=== PATIENT | female | born 1990 | race African-American/Black ===

== ENCOUNTER → 2016-07-25 | Outpatient (CLI) | payer OTHER, MEDICAID ==
[~2016-07-25] MED LIST: ACDPT PO; PNV91TAB3 PO
--- NOTE | 2016-07-25 15:21 | Diagnostic Imaging Report ---
INDICATION: Anatomical survey, twin gestation. COMPARISON: 05/01/2016. DISCUSSION: Transabdominal sonographic evaluation of the gravid uterus was performed. Twin live intrauterine is noted. No abnormal adnexal mass or fluid. Twin A: presentation is cephalic. Placenta is located posteriorly with no placenta previa. Three-vessel cord is visualized. Normal amniotic fluid index measuring 10.2 cm. heart rate measures 158 beats per minute. Estimated weight is 255 g. Good visualization of the three-vessel cord and insertion, stomach, kidneys, bladder, four-chamber heart, spine, extremities, and brain. Biparietal diameter measures 4.03 cm. Head circumference measures 14.8 cm. Abdominal circumference measures 13.5 cm. Femur length measures 2.8 cm. Gestational age is 18 weeks 4 days. EDC by today's ultrasound is 12/22/2016. Twin B: presentation is breech. Placenta is located anteriorly with no placenta previa. Normal amniotic fluid index measuring 8.1 cm. heart rate measures 132 beats per minute. Estimated weight is 211 g. Three-vessel cord and cord insertion appear within normal limits. spine, brain, and extremities appear within normal limits. Good visualization of the four-chamber heart. The kidneys and urinary bladder appear within normal limits. Biparietal diameter measures 4.0 cm. Head circumference measures 14.74 cm. Abdominal circumference measures 11.73 cm. Femur length measures 2.63 cm. Gestational age is 18 weeks 1 day by today's sonographic measurements. EDC by today's ultrasound is 12/25/2016. IMPRESSION: 1. Twin live dichorionic diamniotic , as described. Normal anatomical surveys. Dictated by: Dictated on workstation # [id number]
== END ==
LOC: RAD 13:04
PROVIDERS: ATTEND Family Medicine
DX: Z36 Encounter for antenatal screening of mother (principal); O30.042 Twin pregnancy, dichorionic/diamniotic, second trimester; Z3A.18 18 weeks gestation of pregnancy
CPT/HCPCS: 76805; 76810

== ENCOUNTER 2016-08-05 17:01 | Emergency (ER) | payer OTHER, MEDICAID ==
[~2016-08-05] VITALS: Ht 157.5 cm; Wt 83.1 kg
[~2016-08-05 17:01] MED LIST changes: -ACDPT PO
[2016-08-05] MEDS ORDERED: MEPERIDINE 50 MG/ML (DEMEROL) SYRINGE IV ONE (17:35)
[2016-08-05] MEDS ORDERED: SODIUM CHLORIDE FLUSH 3 ML SYR IV PRN (17:35)
[2016-08-05] MEDS ORDERED: SODIUM CHLORIDE FLUSH 10 ML SYR IV PRN (17:35)
[2016-08-05] MEDS ORDERED: ONDANSETRON 2 MG/ML (Z0FRAN) 2 ML VIAL IV ONE ×2 (17:35→18:05)
[2016-08-05] MEDS ORDERED: SODIUM CHLORIDE 250 ML IV PRN (17:35)
--- NOTE | 2016-08-05 17:54 | NUR ---
Sera yu to measure baby's heart tones
--- NOTE | 2016-08-05 17:59 | NUR ---
PT BECOMES NAUSEATED NOW AFTER ZOFRAN/DEM. DR OCAMPO NOTIFIED. CL
[2016-08-05 18:01] LABS: ALBUMIN 3.4 g/dL (3.4-5.0); ALKALINE PHOSPHATASE 74 U/L (38-126); ANION GAP 10.2 MEQ/L (3-15); BUN/CREATININE RATIO 16 (10-20); CALCULATED IONIZED CALCIUM 4.2 mg/dL (3.8-4.6); CREATINE KINASE 63 U/L (30-135); MAGNESIUM* 1.8 mg/dL (1.6-2.3); TOTAL PROTEIN 6.6 g/dL (6.4-8.5)
--- NOTE | 2016-08-05 18:06 | Diagnostic Imaging Report ---
INDICATION: with twins. Chest pain x1 hour. FINDINGS: Portable chest shows the lungs to be well-aerated and clear. The heart is not enlarged. No pulmonary edema. No pneumothorax or pleural effusions. IMPRESSION: Normal portable chest. Dictated by: Dictated on workstation # [id number]
[2016-08-05 18:07] LABS: BASOPHILS % (AUTO) 0 % (0-2); EOSINOPHILS % (AUTO) 1 % (0-4); LYMPHOCYTES # (AUTO) 1.7 X10^3; MEAN CORPUSCULAR HGB CONC 35.4 g/dL (31.0-37.0); MEAN CORPUSCULAR VOLUME 91 FL (80-100); MEAN PLATELET VOLUME 10.3 FL (6.0-9.5); MONOCYTES # (AUTO) 0.6 X10^3; MONOCYTES % (AUTO) 9 % (3-11); NEUTROPHILS # (AUTO) 4.2 X10^3; NEUTROPHILS % (AUTO) 65 % (51-67); PLATELET COUNT 267 10^3uL (150-450); WHITE BLOOD COUNT 6.56 10^3uL (4.0-11.0)
--- NOTE | 2016-08-05 18:10 | NUR ---
BABY MATERNAL LT FHT= 154 BABY MATERNAL RT FHT = 152 MOVEMENT HEARD WITH EA. BABY. CL
[2016-08-05 18:17] LABS: MEAN CORPUSCULAR HEMOGLOBIN 32.2 PG (26.0-34.0)
--- NOTE | 2016-08-05 19:07 | NUR ---
REPORT GIVEN TO Kay OCHOA AND SHE ACCEPTED CARE OF PT
--- NOTE | 2016-08-05 19:43 | NUR ---
[facility] CALLED [facility] [id number] CRUZ
[2016-08-05 20:42] VITALS: BP 114/37
[2016-08-18] MEDS ORDERED: ACDPT PO (13:45)
== END 2016-08-05 20:42 | disposition home or self-care (01) ==
LOC: ED 17:05
DX: O30.009 Twin pregnancy, unspecified number of placenta and unspecified number of amniotic sacs, unspecified trimester (principal); O26.899 Other specified pregnancy related conditions, unspecified trimester; R09.1 Pleurisy; J40 Bronchitis, not specified as acute or chronic; Z3A.00 Weeks of gestation of pregnancy not specified
CPT/HCPCS: 36415; 71010; 80053; 82550; 82553; 83735; 83880; 84484; 85025; 85379; 85610; 85730; 93005; 96361; 96374; 96375; 99285; J2175; J2405; J7030; 93010

== ENCOUNTER 2016-08-18 13:26 | Emergency (ER) | payer OTHER, MEDICAID ==
[~2016-08-18] VITALS: Ht 157.5 cm; Wt 86.5 kg
[2016-08-18 14:06] LABS: BASOPHILS % (AUTO) 0 % (0-2); EOSINOPHILS % (AUTO) 1 % (0-4); LYMPHOCYTES # (AUTO) 1.6 X10^3; MEAN CORPUSCULAR HGB CONC 34.3 g/dL (31.0-37.0); MEAN CORPUSCULAR VOLUME 93 FL (80-100); MEAN PLATELET VOLUME 10.5 FL (6.0-9.5); MONOCYTES # (AUTO) 0.5 X10^3; MONOCYTES % (AUTO) 7 % (3-11); NEUTROPHILS # (AUTO) 4.7 X10^3; NEUTROPHILS % (AUTO) 68 % (51-67); PLATELET COUNT 241 10^3uL (150-450); WHITE BLOOD COUNT 6.89 10^3uL (4.0-11.0)
[2016-08-18 15:19] VITALS: BP 122/50
== END 2016-08-18 15:20 | disposition home or self-care (01) ==
LOC: ED 13:27
DX: O30.002 Twin pregnancy, unspecified number of placenta and unspecified number of amniotic sacs, second trimester (principal); R00.2 Palpitations; Z3A.21 21 weeks gestation of pregnancy
CPT/HCPCS: 36415; 76805; 76810; 85025; 93005; 99282; 99284

== ENCOUNTER 2016-08-31 17:54 | Emergency (ER) | payer OTHER, MEDICAID ==
[~2016-08-31] VITALS: Ht 160 cm; Wt 87.0 kg
[2016-08-31 18:52] VITALS: BP 116/56
[2016-08-31 19:18] VITALS: BP 116/58
[2016-08-31] MEDS ORDERED: SODIUM CHLORIDE FLUSH 3 ML SYR IV PRN (20:05)
[2016-08-31] MEDS ORDERED: SODIUM CHLORIDE FLUSH 10 ML SYR IV PRN (20:05)
--- NOTE | 2016-08-31 20:07 | NUR ---
1820 pt arrived via wheelchair from the ER, escorted by Mendel SMALL. She was taken to room 226 and helped to the bed. Pt states that she has been having dizziness for 4 weeks and her doctor's suggestions are not helping her. She is having nausea and vomited at 1700 today. She is a , currently with twins. Pt is placed on monitor and assessed.
--- NOTE | 2016-08-31 20:10 | NUR ---
1917 Pt is found to not be in labor. Both babies are reactive. Dr. Zelaya cleared pt from OB care. Pt was discharged from OB in good condition and escorted via wheelchair back to the ER for treatment of her symptoms.
--- NOTE | 2016-08-31 20:20 | NUR ---
INFORMED PT. NEED FOR URINE SPECIMEN, PT UNABLE TO VOID AT THIS TIME. WILL CHECK BACK LATER
[2016-08-31 20:27] LABS: BASOPHILS % (AUTO) 0 % (0-2); EOSINOPHILS % (AUTO) 0 % (0-4); LYMPHOCYTES # (AUTO) 1.9 X10^3; MEAN CORPUSCULAR VOLUME 93 FL (80-100); MEAN PLATELET VOLUME 10.3 FL (6.0-9.5); MONOCYTES # (AUTO) 0.4 X10^3; MONOCYTES % (AUTO) 6 % (3-11); NEUTROPHILS # (AUTO) 4.5 X10^3; NEUTROPHILS % (AUTO) 65 % (51-67); PLATELET COUNT 236 10^3uL (150-450); WHITE BLOOD COUNT 6.89 10^3uL (4.0-11.0)
[2016-08-31 20:32] LABS: MEAN CORPUSCULAR HGB CONC 36.6 g/dL (31.0-37.0)
[2016-08-31 20:39] LABS: ALBUMIN 3.5 g/dL (3.4-5.0); ANION GAP 14.7 MEQ/L (3-15); TOTAL PROTEIN 7.3 g/dL (6.4-8.5)
--- NOTE | 2016-08-31 21:23 | NUR ---
IV INFUSING WITHOUT DIFFICULTY. PT VOIDED- SPECIMEN SENT TO LAB
[2016-08-31 21:42] LABS: BILIRUBIN,URINE Negative (Negative); CLARITY,URINE Clear; COLOR,URINE Yellow; GLUCOSE, URINE (UA) Negative (Negative); LEUKOCYTE ESTERASE ,URINE Negative (Negative); UROBILINOGEN,URINE 0.2 mg/dL (0.2-1.0)
[2016-08-31 22:24] VITALS: BP 119/63
== END 2016-08-31 22:25 | disposition home or self-care (01) ==
LOC: ED 17:56 → EUOP 18:14 → EDSTATUS 18:14 → ED 19:49
DX: O30.002 Twin pregnancy, unspecified number of placenta and unspecified number of amniotic sacs, second trimester (principal); R10.2 Pelvic and perineal pain; R42 Dizziness and giddiness; O21.2 Late vomiting of pregnancy; Z3A.24 24 weeks gestation of pregnancy
CPT/HCPCS: 36415; 80053; 81003; 84439; 84443; 85025; 99202; 99283; J7030; 96360

== ENCOUNTER 2016-10-12 13:09 | Emergency (ER) | payer OTHER, MEDICAID ==
[~2016-10-12] VITALS: Ht 160 cm; Wt 94.6 kg
[2016-10-12 13:39] LABS: BASOPHILS % (AUTO) 0 % (0-2); EOSINOPHILS % (AUTO) 1 % (0-4); LYMPHOCYTES # (AUTO) 1.6 X10^3; MEAN CORPUSCULAR HGB CONC 34.4 g/dL (31.0-37.0); MEAN CORPUSCULAR VOLUME 93 FL (80-100); MONOCYTES # (AUTO) 0.6 X10^3; MONOCYTES % (AUTO) 9 % (3-11); NEUTROPHILS # (AUTO) 4.3 X10^3; NEUTROPHILS % (AUTO) 64 % (51-67); PLATELET COUNT 219 10^3uL (150-450); WHITE BLOOD COUNT 6.62 10^3uL (4.0-11.0)
[2016-10-12 13:52] LABS: ALBUMIN 3.5 g/dL (3.4-5.0); ANION GAP 11.6 MEQ/L (3-15); CALCULATED IONIZED CALCIUM 3.8 mg/dL (3.8-4.6); TOTAL PROTEIN 7.1 g/dL (6.4-8.5)
[2016-10-12 13:54] LABS: BILIRUBIN,URINE Negative (Negative); CLARITY,URINE Clear; COLOR,URINE Yellow; GLUCOSE, URINE (UA) Negative (Negative); LEUKOCYTE ESTERASE ,URINE Negative (Negative); UROBILINOGEN,URINE 0.2 mg/dL (0.2-1.0)
[2016-10-12 13:57] LABS: MEAN CORPUSCULAR HEMOGLOBIN 31.9 PG (26.0-34.0)
[2016-10-12 14:19] LABS: RBC,URINE 0-2 /HPF; URINE CENTRIFUGED VOLUME 12 mL
--- NOTE | 2016-10-12 14:22 | NUR ---
pt having twins both 140's to 150s per ob
[2016-10-12 15:01] VITALS: BP 120/57
== END 2016-10-12 14:55 | disposition home or self-care (01) ==
LOC: ED 13:10
DX: O26.893 Other specified pregnancy related conditions, third trimester (principal); R10.30 Lower abdominal pain, unspecified; Z3A.28 28 weeks gestation of pregnancy
CPT/HCPCS: 36415; 80053; 81003; 81015; 83690; 85025; 99282; 99283